=== PATIENT | male | born 1945 | race Caucasian/White ===

== ENCOUNTER 2019-10-21 08:02 | Day surgery (SDC) | payer MEDICARE, OTHER ==
[2019-10-17 11:34] LABS: BASOPHILS # (AUTO) 0.1 X10'3 (0-0.2); BASOPHILS % (AUTO) 1.2 % (0-1); EOSINOPHILS # (AUTO) 0.2 X10'3 (0-0.9); EOSINOPHILS % (AUTO) 3.4 % (0-6); LYMPHOCYTES # (AUTO) 1.6 X10'3 (1.1-4.8); LYMPHOCYTES % (AUTO) 23.9 % (21-51); MEAN CORPUSCULAR HEMOGLOBIN 32.1 PG (27.0-31.0); MEAN CORPUSCULAR HGB CONC 34.3 g/dL (33.0-36.5); MEAN CORPUSCULAR VOLUME 93.6 FL (78-98); MEAN PLATELET VOLUME 8.2 FL (7.4-10.4); MONOCYTES # (AUTO) 0.7 X10'3 (0-0.9); MONOCYTES % (AUTO) 10.1 % (2-12); NEUTROPHILS # (AUTO) 4.1 X10'3 (1.8-7.7); NEUTROPHILS % (AUTO) 61.4 % (42-75); PRE OP HEMATOCRIT 48.9 % (42.0-52.0); PRE OP HEMOGLOBIN 16.7 g/dL (14.0-17.9); PRE OP PLATELET COUNT 207 X10'3 (140-440); RED BLOOD COUNT 5.22 X10'6 (4.70-6.10); RED CELL DISTRIBUTION WIDTH 14.4 % (11.5-14.5)
[2019-10-17 11:49] LABS: PRE OP PROTIME 10.5 SECONDS (9.0-12.0)
[2019-10-17 11:55] LABS: ALBUMIN 3.8 G/DL (3.4-5.0); ALBUMIN/GLOBULIN RATIO 1.1 (1.1-1.5); ALKALINE PHOSPHATASE 89 IU/L (46-116); BLOOD UREA NITROGEN 14 MG/DL (7-18); BUN/CREATININE RATIO 11.9 (5.4-32.0); CALCIUM 8.9 MG/DL (8.5-10.1); CHLORIDE 106 MMOL/L (99-107); CREATININE 1.18 MG/DL (0.60-1.10); PRE OP ALT 35 U/L (30-65); PRE OP ANION GAP 9 (8-16); PRE OP AST 20 U/L (10-37); PRE OP BILIRUB, TOTAL 1.1 MG/DL (0.0-1.0); PRE OP GLUCOSE 93 MG/DL (70-104); PRE OP POTASSIUM 4.1 MMOL/L (3.4-5.1); PRE OP SODIUM 140 MMOL/L (135-145); TOTAL CARBON DIOXIDE 25.3 MMOL/L (24-32); TOTAL PROTEIN 7.3 G/DL (6.4-8.2); eGFR 60 ML/MIN
[~2019-10-21] VITALS: Ht 180.3 cm; Wt 110.0 kg
[2019-10-21] VITALS (9 sets, daily range): BP systolic 99–137; BP diastolic 63–88
[~2019-10-21 08:02] MED LIST: APIX5TAB3 PO; ATOR40TA PO; BUPIVACAINE liposomal/PF 13.3 MG/ML vial IM ONE; BUPIVAcaine/PF 2.5 mg/ml (0.25%) 30ml vial ONE; BUPIVAcaine/PF 2.5mg/ml (0.25%) 10ml vial ONE; Cefazolin 2GM/100ML NS IVPB 100 ML IV ONE; LIDOcaine 1% 30ml preserv. free vial ONE; famotidine 10mg tablet PO ONE; ringers solution, lacted 1,000 ML IV SCH
[2019-10-21] MEDS ORDERED: sevoflurane 250ml liquid IH ONE (10:16)
[2019-10-21] MEDS ORDERED: dexamethasone sod phosphate 10mg/ml inj ONE (10:16)
[2019-10-21] MEDS ORDERED: neostigmine methylsulfate 1 MG/ML 10ml vial ONE (10:16)
[2019-10-21] MEDS ORDERED: midazolam 2 mg/2 ml injection ONE (10:17)
[2019-10-21] MEDS ORDERED: fentaNYL /PF 50mcg/ml 5ml ampule ONE (10:18)
[2019-10-21] MEDS ORDERED: rocuronium 10mg/ml inj IV ONE (10:29)
[2019-10-21] MEDS ORDERED: ondansetron/PF 4mg/2ml inj ONE (10:29)
[2019-10-21] MEDS ORDERED: propofol inj 20 ML IV ONE (10:29)
[2019-10-21] MEDS ORDERED: LIDOcaine 2% (20mg/ml) 5ml vial ONE (10:29)
[2019-10-21] MEDS ORDERED: glycopyrrolate 0.2mg/ml inj ONE (10:29)
[2019-10-21] MEDS ORDERED: ringers solution, lacted 1,000 ML IV SCH (10:51)
[2019-10-21] MEDS ORDERED: ondansetron/PF 4mg/2ml inj IV PRN (10:55)
[2019-10-21] MEDS ORDERED: morphine 4 MG/ML inj SYRINge IV PRN ×2 (10:55)
[2019-10-21] MEDS ORDERED: hydrALAZINE 20mg/ml inj. IV PRN (10:55)
[2019-10-21] MEDS ORDERED: labetalol 20mg/4ml (5mg/ml) syringe IV PRN (10:55)
[2019-10-21] MEDS ORDERED: fentaNYL/PF 50MCG/1 ML 2ML syringe IV PRN ×2 (10:55)
--- NOTE | 2019-10-21 11:45 | NUR ---
Received from OR via BED , accompanied by Anesthesiologist DR WADE and report given by Anesthesiolgist. PATIENT WAKING UP, DENIES PAIN, V/S WNL, NEUROVASCULAR CHECKS INTACT, 20G PIV RUE, SCD ON, BANDAIDS TO LAP SIGHTS OF ABDOMEN CDI.
[2019-10-21] MEDS ORDERED: HYDROcodone/acetaminophen 5mg/325mg tablet PO PRN (12:00)
--- NOTE | 2019-10-21 12:55 | NUR ---
PATIENT A&OX4, DENIES PAIN, V/S WNL, NEUROVASCULAR CHECKS INTACT, 20G PIV LUE D/C, SCD OFF, BANDAIDS TO LAP SIGHTS OF ABDOMEN CDI.. I HAVE REVIEWED D/C INSTRUCTIONS WITH PATIENT AND FAMILY HAVE VERBALIZED UNDERSTANDING.PATIENT WAS D/C HOME WITH ALL BELONGINGS AND FAMILY GAVE TRANSPORT HOME.
== END 2019-10-21 12:55 | disposition home or self-care (01) ==
LOC: PAS 08:02
PROVIDERS: ATTEND Surgery
DX: K43.6 Other and unspecified ventral hernia with obstruction, without gangrene (principal); K40.90 Unilateral inguinal hernia, without obstruction or gangrene, not specified as recurrent; I48.91 Unspecified atrial fibrillation; E78.5 Hyperlipidemia, unspecified; I27.29 Other secondary pulmonary hypertension; E66.9 Obesity, unspecified; Z68.33 Body mass index [BMI] 33.0-33.9, adult; Z79.899 Other long term (current) drug therapy; Z98.890 Other specified postprocedural states; Z82.61 Family history of arthritis; Z82.49 Family history of ischemic heart disease and other diseases of the circulatory system; Z80.41 Family history of malignant neoplasm of ovary
CPT/HCPCS: 36415; 49561; 49650; 71046; 80053; 82948; 85025; 85610; 85730; C1781; C9290; J0690; J1100; J2001; J2250; J2405; J2704; J2710; J3010; J3490; J7120; A4215; A4618; A7000

== ENCOUNTER 2020-02-22 18:07 | Emergency (ER) | payer MEDICARE, OTHER ==
[~2020-02-22] VITALS: Ht 177.8 cm; Wt 107.5 kg
[~2020-02-22 18:07] MED LIST changes: -BUPIVACAINE liposomal/PF 13.3 MG/ML vial IM ONE; -BUPIVAcaine/PF 2.5 mg/ml (0.25%) 30ml vial ONE; -BUPIVAcaine/PF 2.5mg/ml (0.25%) 10ml vial ONE; -Cefazolin 2GM/100ML NS IVPB 100 ML IV ONE; -LIDOcaine 1% 30ml preserv. free vial ONE; -famotidine 10mg tablet PO ONE; -ringers solution, lacted 1,000 ML IV SCH
[2020-02-22] MEDS ORDERED: LIDOcaine 1% W/epiNEPHrine 1:200,000 10ml vial IJ ONE (18:50)
[2020-02-22] MEDS ORDERED: TETanus/Pertussis (Acell)/Diphther VAC/PF (Tdap-Adult) 0.5ml syringe IMVAC ONE (18:50)
[2020-02-22] MEDS ORDERED: bacitracin 15gm ointment TP ONE (18:50)
--- NOTE | 2020-02-22 18:56 | NUR ---
Pt. to CT scan at this time, escorted by tech.
--- NOTE | 2020-02-22 19:20 | NUR ---
Pt. returned to ED room [address] scan and X-ray.
--- NOTE | 2020-02-22 19:31 | NUR ---
Spoke with CULLEN Poole re resulted radiology data. Per provider, trauma alert can be called of at this time.
--- NOTE | 2020-02-22 20:04 | NUR ---
CULLEN Poole at bedside providing lac repair to R hand and R knee.
[2020-02-22 20:57] VITALS: BP 135/76
== END 2020-02-22 20:59 | disposition home or self-care (01) ==
LOC: ER 18:07
DX: S81.011A Laceration without foreign body, right knee, initial encounter (principal); S61.411A Laceration without foreign body of right hand, initial encounter; S70.02XA Contusion of left hip, initial encounter; S00.81XA Abrasion of other part of head, initial encounter; I48.91 Unspecified atrial fibrillation; M79.641 Pain in right hand; M25.552 Pain in left hip; Z79.899 Other long term (current) drug therapy; W01.0XXA Fall on same level from slipping, tripping and stumbling without subsequent striking against object, initial encounter; Y93.89 Activity, other specified; Y92.89 Other specified places as the place of occurrence of the external cause; Y99.8 Other external cause status
CPT/HCPCS: 12004; 70450; 70486; 72125; 73502; 90471; 90715; 99285

== ENCOUNTER 2020-03-03 10:54 | Emergency (ER) | payer MEDICARE, OTHER ==
[~2020-03-03] VITALS: Ht 180.3 cm; Wt 97.5 kg
[2020-03-03 11:06] VITALS: BP 105/70
[2020-03-03] MEDS ORDERED: CEPH250T PO (12:15)
== END 2020-03-03 13:06 | disposition home or self-care (01) ==
LOC: ER 10:54
DX: L03.115 Cellulitis of right lower limb (principal); L03.113 Cellulitis of right upper limb; I48.91 Unspecified atrial fibrillation; Z79.01 Long term (current) use of anticoagulants; Z79.899 Other long term (current) drug therapy
CPT/HCPCS: 99283

== ENCOUNTER 2020-08-17 06:49 | Day surgery (SDC) | payer MEDICARE, OTHER ==
[2020-08-12 14:21] LABS: BASOPHILS # (AUTO) 0.1 X10'3 (0-0.2); BASOPHILS % (AUTO) 1.1 % (0-1); EOSINOPHILS # (AUTO) 0.1 X10'3 (0-0.9); EOSINOPHILS % (AUTO) 2.2 % (0-6); LYMPHOCYTES # (AUTO) 1.4 X10'3 (1.1-4.8); LYMPHOCYTES % (AUTO) 21.1 % (21-51); MEAN CORPUSCULAR HEMOGLOBIN 32.2 PG (27.0-31.0); MEAN CORPUSCULAR HGB CONC 33.7 g/dL (33.0-36.5); MEAN CORPUSCULAR VOLUME 95.5 FL (78-98); MEAN PLATELET VOLUME 8.2 FL (7.4-10.4); MONOCYTES # (AUTO) 0.7 X10'3 (0-0.9); MONOCYTES % (AUTO) 10.3 % (2-12); NEUTROPHILS # (AUTO) 4.5 X10'3 (1.8-7.7); NEUTROPHILS % (AUTO) 65.3 % (42-75); PRE OP HEMATOCRIT 46.5 % (42.0-52.0); PRE OP HEMOGLOBIN 15.7 g/dL (14.0-17.9); PRE OP PLATELET COUNT 209 X10'3 (140-440); RED BLOOD COUNT 4.87 X10'6 (4.70-6.10); RED CELL DISTRIBUTION WIDTH 14.4 % (11.5-14.5)
[2020-08-12 14:34] LABS: PRE OP PROTIME 10.7 SECONDS (9.0-12.0)
[2020-08-12 14:39] LABS: ALBUMIN/GLOBULIN RATIO 1.1 (1.1-1.5); ALKALINE PHOSPHATASE 84 IU/L (46-116); BLOOD UREA NITROGEN 16 MG/DL (7-18); BUN/CREATININE RATIO 15.1 (5.4-32.0); CALCIUM 8.9 MG/DL (8.5-10.1); CHLORIDE 105 MMOL/L (99-107); CREATININE 1.06 MG/DL (0.60-1.10); PRE OP ALT 28 U/L (30-65); PRE OP ANION GAP 6 (8-16); PRE OP AST 20 U/L (10-37); PRE OP BILIRUB, TOTAL 1.1 MG/DL (0.0-1.0); PRE OP GLUCOSE 91 MG/DL (70-104); PRE OP SODIUM 140 MMOL/L (135-145); TOTAL CARBON DIOXIDE 29.1 MMOL/L (24-32); TOTAL PROTEIN 7.5 G/DL (6.4-8.2); eGFR 68 ML/MIN
[~2020-08-17] VITALS: Ht 177.8 cm; Wt 107.0 kg
[2020-08-17] VITALS (9 sets, daily range): BP systolic 112–143; BP diastolic 77–94
[~2020-08-17 06:49] MED LIST changes: +BUPIVACAINE liposomal/PF 13.3 MG/ML vial IM ONE; +BUPIVAcaine/PF 2.5 mg/ml (0.25%) 30ml vial ONE; +BUPIVAcaine/PF 2.5mg/ml (0.25%) 10ml vial ONE; +CHOL100025 PO; +LIDOcaine 1% 30ml preserv. free vial ONE; +ceFAZolin 2gm in dextrose, iso 50 ML IV ONE; +famotidine 20mg tablet PO ONE; +ringers solution, lacted 1,000 ML IV SCH
[2020-08-17] MEDS ORDERED: proCHLORperazine 10 MG/2 ml inj IV PRN (08:45)
[2020-08-17] MEDS ORDERED: ringers solution, lacted 1,000 ML IV SCH (08:45)
[2020-08-17] MEDS ORDERED: meperidine/PF 25mg/ml syringe IV PRN ×3 (08:45)
[2020-08-17] MEDS ORDERED: morphine 2 MG/ML inj. syringe IV PRN (08:45)
[2020-08-17] MEDS ORDERED: ondansetron/PF 4mg/2ml inj IV PRN (08:45)
[2020-08-17] MEDS ORDERED: morphine 4 MG/ML inj SYRINge IV PRN (08:45)
[2020-08-17] MEDS ORDERED: sevoflurane 250ml liquid IH ONE (09:13)
[2020-08-17] MEDS ORDERED: midazolam 2 mg/2 ml injection ONE (09:18)
[2020-08-17] MEDS ORDERED: fentaNYL /PF 50mcg/ml 5ml ampule ONE (09:19)
[2020-08-17] MEDS ORDERED: propofol inj 20 ML IV ONE (09:20)
[2020-08-17] MEDS ORDERED: rocuronium 10mg/ml inj IV ONE (09:20)
[2020-08-17] MEDS ORDERED: LIDOcaine 2% (20mg/ml) 5ml vial ONE (09:20)
[2020-08-17] MEDS ORDERED: ondansetron/PF 4mg/2ml inj ONE (09:27)
[2020-08-17] MEDS ORDERED: dexamethasone sod phosphate 4mg/ml inj. ONE (09:28)
[2020-08-17] MEDS ORDERED: acetaminophen 1,000mg/100ml IV 100 ML IV ONE (10:17)
[2020-08-17] MEDS ORDERED: bacitracin 15gm ointment TP ONE (11:11)
[2020-08-17] MEDS ORDERED: ePHEDrine 50MG/ML INJ. ONE (11:14)
--- NOTE | 2020-08-17 11:26 | NUR ---
Received from OR via , accompanied by Anesthesiologist DR PHAN and report given by Anesthesiolgist. AWAKENS TO VOICE. VITALS STABLE. DRESSINGS DI. UYEN PAIN. ABD SOFT.
[2020-08-17] MEDS ORDERED: oxyCODONE/APAP 5-325mg tablet PO PRN ×2 (11:45)
--- NOTE | 2020-08-17 12:46 | NUR ---
AWAKE AND ORIENTED. VITALS STABLE. DRESSINGS DI. UYEN PAIN. HOME WITH HIS AT THIS TIME.
== END 2020-08-17 12:46 | disposition home or self-care (01) ==
LOC: PAS 06:49
PROVIDERS: ATTEND Surgery
DX: K43.2 Incisional hernia without obstruction or gangrene (principal); N43.3 Hydrocele, unspecified; I48.91 Unspecified atrial fibrillation; E78.5 Hyperlipidemia, unspecified; E66.9 Obesity, unspecified; Z68.33 Body mass index [BMI] 33.0-33.9, adult; Z20.828 Contact with and (suspected) exposure to other viral communicable diseases; Z79.01 Long term (current) use of anticoagulants; Z79.899 Other long term (current) drug therapy; Z72.89 Other problems related to lifestyle; Z98.890 Other specified postprocedural states; Z91.018 Allergy to other foods; Z82.61 Family history of arthritis; Z80.41 Family history of malignant neoplasm of ovary; Z82.49 Family history of ischemic heart disease and other diseases of the circulatory system
CPT/HCPCS: 36415; 49656; 55040; 64488; 80053; 82948; 85025; 85610; 85730; 87635; C1781; C9290; J0131; J1100; J2001; J2250; J2405; J2704; J3010; J3490; J7120; A4215; A4618; A6449

== ENCOUNTER 2022-12-05 12:40 | Day surgery (SDC) | payer MEDICARE, OTHER ==
[2022-11-30 09:34] LABS: BASOPHILS # (AUTO) 0.1 X10'3 (0-0.2); BASOPHILS % (AUTO) 1.4 % (0-1); EOSINOPHILS # (AUTO) 0.4 X10'3 (0-0.9); EOSINOPHILS % (AUTO) 8.6 % (0-6); HEMATOCRIT 48.9 % (42.0-52.0); HEMOGLOBIN 16.5 g/dl (14.0-17.9); LYMPHOCYTES # (AUTO) 1.6 X10'3 (1.1-4.8); LYMPHOCYTES % (AUTO) 29.9 % (21-51); MEAN CORPUSCULAR HEMOGLOBIN 31.5 PG (27.0-31.0); MEAN CORPUSCULAR HGB CONC 33.8 g/dL (33.0-36.5); MEAN CORPUSCULAR VOLUME 93.3 FL (78-98); MEAN PLATELET VOLUME 7.8 FL (7.4-10.4); MONOCYTES # (AUTO) 0.6 X10'3 (0-0.9); MONOCYTES % (AUTO) 12.4 % (2-12); NEUTROPHILS # (AUTO) 2.5 X10'3 (1.8-7.7); NEUTROPHILS % (AUTO) 47.7 % (42-75); PLATELET COUNT 193 X10'3 (140-440); RED BLOOD COUNT 5.24 X10'6 (4.70-6.10); RED CELL DISTRIBUTION WIDTH 13.9 % (11.5-14.5); WHITE BLOOD COUNT 5.2 X10'3 (4.5-11.0)
[2022-11-30 09:48] LABS: ALBUMIN 3.7 G/DL (3.4-5.0); ANION GAP 9 (8-16); APTT 30 SECONDS (22-32); BLOOD UREA NITROGEN 21 MG/DL (7-18); BUN/CREATININE RATIO 21.2 (5.4-32.0); CALCIUM 9.3 MG/DL (8.5-10.1); CHLORIDE 106 MMOL/L (99-107); CHOL/HDL RATIO 3.3 (0.00-4.99); CHOLESTEROL 165 MG/DL (0-200); CREATININE 0.99 MG/DL (0.60-1.10); GLUCOSE 98 MG/DL (70-104); HDL CHOLESTEROL 50 MG/DL (35-60); LDL CHOLESTEROL 101 MG/DL (50-100); SODIUM 140 MMOL/L (135-145); TOTAL CARBON DIOXIDE 25.4 MMOL/L (24-32); TRIGLYCERIDES 66 MG/DL (20-135); eGFR 73 ML/MIN
[2022-12-05] VITALS (8 sets, daily range): BP systolic 105–130; BP diastolic 62–78
[~2022-12-05] VITALS: Ht 180.3 cm; Wt 106.5 kg
[~2022-12-05 12:40] MED LIST changes: -BUPIVACAINE liposomal/PF 13.3 MG/ML vial IM ONE; -BUPIVAcaine/PF 2.5 mg/ml (0.25%) 30ml vial ONE; -BUPIVAcaine/PF 2.5mg/ml (0.25%) 10ml vial ONE; -LIDOcaine 1% 30ml preserv. free vial ONE; -ceFAZolin 2gm in dextrose, iso 50 ML IV ONE; -famotidine 20mg tablet PO ONE; -ringers solution, lacted 1,000 ML IV SCH
[2022-12-05] MEDS ORDERED: SACU1TAB PO (13:10)
[2022-12-05] MEDS ORDERED: fentaNYL/PF 50MCG/1 ML 2ML syringe ONE (13:14)
[2022-12-05] MEDS ORDERED: verapamil 2.5 mg/ml inj IV ONE (13:14)
[2022-12-05] MEDS ORDERED: LIDOcaine 1% (10mg/ml) 2ml vial ONE (13:14)
[2022-12-05] MEDS ORDERED: heparin 1,000unit/ml 10ml vial 10 ML ONE (13:14)
[2022-12-05] MEDS ORDERED: midazolam 1 mg/ML 2ml injection ONE (13:14)
[2022-12-05] MEDS ORDERED: nitroGLYCERIN-Tridil 50MG/D5W 250 ML IV ONE (13:15)
[2022-12-05] MEDS ORDERED: normal saline 1,000 ML IV SCH ×2 (13:15→13:25)
[2022-12-05] MEDS ORDERED: diphenhydrAMINE 25mg capsule PO PRN ×2 (13:15→13:25)
[2022-12-05] MEDS ORDERED: LORazepam 0.5 MG tablet PO PRN ×2 (13:15→13:25)
[2022-12-05] MEDS ORDERED: iohexol 350MG/ML 100ml bottle IV ONE (13:15)
[2022-12-05] MEDS ORDERED: OXAZEpam 15mg capsule PO PRN (15:10)
[2022-12-05] MEDS ORDERED: HYDROcodone/acetaminophen 10/325mg tab PO PRN (15:10)
[2022-12-05] MEDS ORDERED: HYDROcodone/acetaminophen 5mg/325mg tablet PO PRN (15:10)
[2022-12-05] MEDS ORDERED: ondansetron/PF 4mg/2ml inj IV PRN (15:10)
[2022-12-05] MEDS ORDERED: proCHLORperazine 10 MG/2 ml inj IV PRN (15:10)
== END 2022-12-05 17:00 | disposition home or self-care (01) ==
LOC: SSTAY O 12:40
PROVIDERS: ATTEND Student in an Organized Health Care Education/Training Program
DX: R94.39 Abnormal result of other cardiovascular function study (principal); I48.91 Unspecified atrial fibrillation; E78.5 Hyperlipidemia, unspecified; I50.9 Heart failure, unspecified; Z79.899 Other long term (current) drug therapy; Z79.01 Long term (current) use of anticoagulants; Z91.018 Allergy to other foods
CPT/HCPCS: 36415; 80048; 80061; 85025; 85610; 85730; 93005; 93458; 99152; C1769; C1894; J1644; J2250; J3010; J3490; J7030; Q0163; Q9967; 99153; A6258; A6402

== ENCOUNTER 2025-02-21 14:44 | Emergency (ER) | payer MEDICARE, OTHER ==
[~2025-02-21] VITALS: Ht 180.3 cm; Wt 102.2 kg
[~2025-02-21 14:44] MED LIST changes: +SACU1TAB PO
--- NOTE | 2025-02-21 15:44 | RADIOLOGY REPORT ---
CLINICAL INDICATION: Finger Pain TECHNIQUE: 3 radiographic views of the right fingers were obtained. Comparison: None FINDINGS/IMPRESSION: There is acute minimally displaced oblique fracture through the distal part of the 2nd digit distal p halanx with associated soft tissue edema soft tissue wound. 3 mm density within the palmar soft tissu es of the 2nd digit distal phalanx which may represent a small avulsed bony fragment /foreign body or may be external to the patient. Soft tissue wound of the distal part of the 3rd digit. 8 x 9 mm density within the palmar soft tissue s adjacent to the 3rd digit distal phalanx which may be external to the patient or may be associated with the wound. Severe degenerative changes of the distal interphalangeal joint of the 5th digit with erosive changes .
[2025-02-21] MEDS: LIDOcaine 1% W/epiNEPHrine 1:100,000 20ml vial SQ STA (16:51)
[2025-02-21] MEDS: LIDOcaine 1% 30ml preserv. free vial IJ STA (16:55)
--- NOTE | 2025-02-21 17:58 | Physician Documentation ---
History of Present Illness ~ Chief Complaint: Laceration Stated Complaint: FINGER LAC Time Seen by MD: 15:05 Primary Medical Doctor: Lamberto - PMD, Kareem - Cardiology HPI Patient is seen today with complaints of injury to the 2nd and 3rd digits of his left hand while he was trimming his head is. He states his fingers got caught in the head tremor and has lacerations to the ends of his 2nd and 3rd digits of left hand. Patient states this occurred just prior to arrival. Patient drove himself in. Patient has no other concern or complaint at this time. Tetanus Within 5 Years: No Medication Reconciliation Allergies: Coded Allergies: No Known Drug Allergies (Verified Allergy, Unknown, 08/16/20) banana (Verified Allergy, Unknown, upset stomach, 03/17/21) Scheduled Apixaban (Eliquis), 1 TAB PO Q12H, (Reported) Atorvastatin Calcium* (Lipitor*), 1 TAB PO HS, (Reported) Cholecalciferol (Vitamin D), 1 TAB PO DAILY, (Reported) Sacubitril/Valsartan (Entresto 24 mg-26 mg Tablet), 1 TAB PO BID, (Reported) Past Medical History Past Medical History: Atrial Fibrillation Past Surgical History: noncontributory Alcohol Use: None Drug Use: none Lives with: Spouse Lives In: Home Occupation: retired Review of Systems Constitutional: Denies: chills, fever, weakness Eyes: Denies: pain, blurred vision ENT: Denies: ear pain, nose pain, throat pain, mouth pain Respiratory: Denies: cough, shortness of breath Cardiovascular: Denies: chest pain, palpitations Gastrointestinal: Denies: abdominal pain, nausea, vomiting Genitourinary: Denies: burning, dysuria Male Genitalia: Denies: penile discharge, testicular pain Neurological: Denies: headache, dizziness Musculoskeletal: Denies: pain, swelling Integumentary: Denies: rash, lesions Allergic/Immunologic: Denies: hives, itching Hematologic/Lymphatic: Denies: no symptoms reported Psychiatric: Denies: depression, anxiety Physical Exam Vital Signs: Temperature: 96.4, Source: Oral, Heart Rate: 80, Respiratory Rate: 18, BP: 118/69, Pulse Oximetry: 97, Weight: 102.200 Physical Exam General: Awake and Alert, no acute distress. HEENT: Conjunctiva pink, Sclera clear, Mucus Membranes moist. Neck: Supple without masses and tenderness. Resp: Unlabored. Lungs clear to auscultation bilaterally. Heart: Regular Rate and rhythm, normal S1 and S2 without murmur, rub or gallop. Musculoskeletal: Patient on exam does have laceration longitudinally through the nailbed of the left index finger but not through the nail matrix, just involving the tuft and about 70% of the nail distally. The laceration extends through the palmar aspect of the left index finger about 70% of the distal phalanx palmar aspect. Patient also has large skin flap present of left long finger radial aspect.. The flap does have light touch sensation intact. Extremities: No cyanosis,clubbing or edema. Skin: Warm and Dry. Progress Results/Orders Results/Orders Completed Orders - FINN MARQUIS PAC Lidocaine 1% W/Epi 1:100,000 (Xylocaine (02/21/25 15:21) Lidocaine 1% 30ml Vial (Xylocaine 1% Via (02/21/25 16:42) Vital Signs 02/21/25 14:51 Temp 96.4 Pulse 80 Resp 18 B/P (MAP) 118/69 Pulse Ox 97 EKG/XRAY/CT/US/VASC/MRI Bone/Soft Tissue X-Ray (Ext.) : Additional Comment X-ray of left hand interpreted by myself today shows oblique minimally displaced fracture through the distal tuft of the left 2nd digit, there is no other fracture appreciated. DIAGNOSTIC RADIOLOGY Patient: KELL PEREZ Medical Record: [id number] HOSPITAL : 1945, Age: 80 Sex: Male Location: ER Patient Status: REG ER Service Date/Time: 02/21/251458 Ordering Physician: JOANA CANTU MD Exam: FINGER(S) CLINICAL INDICATION: Finger Pain TECHNIQUE: 3 radiographic views of the right fingers were obtained. Comparison: None FINDINGS/IMPRESSION: There is acute minimally displaced oblique fracture through the distal part of the 2nd digit distal phalanx with associated soft tissue edema soft tissue wound. 3 mm density within the palmar soft tissues of the 2nd digit distal phalanx which may represent a small avulsed bony fragment /foreign body or may be external to the patient. Soft tissue wound of the distal part of the 3rd digit. 8 x 9 mm density within the palmar soft tissues adjacent to the 3rd digit distal phalanx which may be external to the patient or may be associated with the wound. Severe degenerative changes of the distal interphalangeal joint of the 5th digit with erosive changes . Electronically Signed by:MERYL SCHULER DO Date & Time: 02/21/251541 Dictated by: MERYL SCHULER DO Dictation date and time: 02/21/251541 Primary Care Provider: NO PRIMARY CARE PROVIDER cc: JOANA CANTU MD ~ Medical Decision Making Findings Patient is seen today with complaints of injury to the 2nd and 3rd digits of his left hand while he was trimming his head is. He states his fingers got caught in the head tremor and has lacerations to the ends of his 2nd and 3rd digits of left hand. Patient states this occurred just prior to arrival. Patient drove himself in. Patient has no other concern or complaint at this time. Patient did have lacerations of 2nd and 3rd digits of left hand sutured today by myself, patient tolerated well. Patient will return for sutures to be removed in 7-9 days here in the ED or he will follow up with his primary care provider. Prescription of Bactrim DS to be taken by mouth twice a day for seven days sent to patient's pharmacy. Patient will return to ED with any worsening, concerning or changing symptoms. Shared decision-making utilized today. Departure Disposition: 01 HOME / SELF CARE / HOMELESS Impression: Primary Impression: Laceration Condition: Improved Discharge Instructions: Laceration Care, Adult, [id number] Additional Instructions: Patient did have lacerations of 2nd and 3rd digits of left hand sutured today by myself, patient tolerated well. Patient will return for sutures to be removed in 7-9 days here in the ED or he will follow up with his primary care provider. Prescription of Bactrim DS to be taken by mouth twice a day for seven days sent to patient's pharmacy. Patient will return to ED with any worsening, concerning or changing symptoms. Shared decision-making utilized today. Referrals: NO PRIMARY CARE PROVIDER (PCP) Prescriptions Sulfamethoxazole/Trimethoprim (Bactrim Ds Tablet) 800 Mg-160 Mg Tablet 1 TAB PO Q12H for 7 Days, #14 TAB Prov: FINN MARQUIS 02/21/25 Signature Scribe Signature: No scribe Attestation: No scribe FINN MARQUIS PAC February 21, 2025 17:58
[2025-02-21] MEDS ORDERED: SULF1TAB49 PO (18:20)
[2025-02-21] MEDS: sulfamethoxazole/trimethoprim DS (800/160mg) tablet PO ONE (18:28)
[2025-02-21 18:33] VITALS: BP 130/70; PULSE 74; RESP 16; TEMP 98.5; O2SAT 98
== END 2025-02-21 18:36 | disposition home or self-care (01) ==
LOC: ER 14:45
DX: S61.211A Laceration without foreign body of left index finger without damage to nail, initial encounter (principal); I48.91 Unspecified atrial fibrillation; X58.XXXA Exposure to other specified factors, initial encounter; Y93.89 Activity, other specified; Y92.89 Other specified places as the place of occurrence of the external cause; Y99.8 Other external cause status
CPT/HCPCS: 12001; 73140; 99283; A6402; A6446; Z7610; A6449

== ENCOUNTER 2025-02-28 10:00 | Emergency (ER) | payer MEDICARE, OTHER ==
[~2025-02-28] VITALS: Ht 180.3 cm; Wt 85.9 kg
[~2025-02-28 10:00] MED LIST changes: +SULF1TAB49 PO
[2025-02-28 10:01] VITALS: BP 116/74; PULSE 72; RESP 15; TEMP 96.6; O2SAT 100
--- NOTE | 2025-02-28 11:32 | Physician Documentation ---
History of Present Illness ~ Chief Complaint: Suture Removal Stated Complaint: STITCHES REMOVED Time Seen by MD: 11:19 Primary Medical Doctor: Lamberto - PMKareem Paulino - Cardiology HPI 80-year-old male reports a for suture removal of index and middle finger. Patient states he had sutures placed almost two weeks ago after sustaining lacerations with a weed whacker. Denies active drainage or discharge. Denies pain. No other complaints at this time Tetanus Within 5 Years: Yes Medication Reconciliation Allergies: Coded Allergies: No Known Drug Allergies (Verified Allergy, Unknown, 08/16/20) banana (Verified Allergy, Unknown, upset stomach, 03/17/21) Scheduled Apixaban (Eliquis), 1 TAB PO Q12H, (Reported) Atorvastatin Calcium* (Lipitor*), 1 TAB PO HS, (Reported) Cholecalciferol (Vitamin D), 1 TAB PO DAILY, (Reported) Sacubitril/Valsartan (Entresto 24 mg-26 mg Tablet), 1 TAB PO BID, (Reported) Sulfamethoxazole/Trimethoprim (Bactrim Ds Tablet), 1 TAB PO Q12H Past Medical History Past Medical History: Atrial Fibrillation Past Surgical History: noncontributory Alcohol Use: None Drug Use: none Lives with: Spouse Lives In: Home Occupation: retired Physical Exam Vital Signs: Temperature: 96.6, Source: Temporal, Heart Rate: 72, Respiratory Rate: 15, BP: 116/74, Pulse Oximetry: 100, Weight: 85.900 Physical Exam General: Well developed, well nourished, no distress. HEENT: Atraumatic, normal conjunctiva, moist mucous membranes. Neck: Full range of motion, supple. Respiratory: Lungs clear, no respiratory distress. Chest: No accessory muscle use, nontender. Cardiovascular: Regular rate and rhythm. Gastrointestinal: Soft, nontender, nondistended. Bowel sounds present. Extremities: Positive for a 2 cm laceration to the index finger and middle finger with sutures in place. Negative for evidence of wound dehiscence or erythema or active drainage or discharge. Compartments soft compressible. Neurovascular intact distally Back: No midline tenderness, no CVA tenderness. Neurologic: Oriented x4. Distal gross motor and sensory intact all four extremities. Moves all 4 extremities spontaneously. Psychiatric: Normal mood and affect. Skin: Normal color, warm and dry. No edema, no ecchymosis Procedure Suture/Staple Removal : Location: finger Removed without Complications: Yes # of Sutures/[place] Removed: 10 Steri-Strips applied?: Yes Delayed Suture/Staple Removal: No Tolerated Procedure Well?: yes, no complications Progress Results/Orders Results/Orders Vital Signs 02/28/25 10:01 Temp 96.6 Pulse 72 Resp 15 B/P (MAP) 116/74 Pulse Ox 100 Medical Decision Making Additional info obtained from: old records Findings After detailed discussion and joint medical decision-making, diagnostic and imaging results were discussed with the patient. At this time patient had sutures removed and Steri-Strips were placed. Patient does not have evidence of wound dehiscence no further workup is required. Patient advised to follow up with the primary care. ER precautions given. Patient is stable upon discharge. All patient questions answered to satisfaction Differential Dx:Considerations: Include: Cellulitis, Suture removal, Wound dehiscence Departure Disposition: HOME / SELF CARE / HOMELESS Impression: Primary Impression: Wound Additional Impressions: Laceration Visit for suture removal Encounter for removal of sutures Condition: Stable Discharge Instructions: Suture Removal, Care After Referrals: NO PRIMARY CARE PROVIDER (PCP) Education Educated: Patient Educated regarding: diagnosis, treatment Signature Scribe Signature: None used Attestation: Scribed for Jania Cano by Jania BERMAN . 02/28/25 11:33 JANIA CANO February 28, 2025 11:32
== END 2025-02-28 11:29 | disposition home or self-care (01) ==
LOC: ER 10:00
DX: S61.211D Laceration without foreign body of left index finger without damage to nail, subsequent encounter (principal); S61.213D Laceration without foreign body of left middle finger without damage to nail, subsequent encounter; I48.91 Unspecified atrial fibrillation; X58.XXXD Exposure to other specified factors, subsequent encounter
CPT/HCPCS: 99281